=== PATIENT | male | born 1975 | race African-American/Black ===

== ENCOUNTER 2024-01-07 07:15 | Emergency (ER) | payer SELFPAY ==
[2024-01-07] MEDS ORDERED: Ketorolac Tromethamine 30 MG (1 mL) VIAL ONE (08:09)
== END 2024-01-07 08:23 | disposition home or self-care (01) ==
LOC: MADERS 07:15
DX: M25.512 Pain in left shoulder (principal); M79.622 Pain in left upper arm; F17.210 Nicotine dependence, cigarettes, uncomplicated
CPT/HCPCS: 96372; J1885